=== PATIENT | male | born 1970 | race Caucasian/White ===

== ENCOUNTER 2019-12-11 06:17 | Outpatient (CLI) | payer OTHER, SELFPAY ==
[2019-12-11 16:20] LABS: SARS-CoV-2 RNA PCR Negative
== END 2019-12-11 06:18 | disposition home or self-care (01) ==
LOC: ANHCOVIDDT 06:18
PROVIDERS: PCP Internal Medicine; Visit Provider Surgery
DX: Z01.818 Encounter for other preprocedural examination (principal); Z11.59 Encounter for screening for other viral diseases
CPT/HCPCS: 87635; C9803; U0003

== ENCOUNTER 2019-12-11 08:26 | Outpatient (CLI) | payer OTHER, SELFPAY ==
--- NOTE | 2019-12-11 08:49 | ECG_ITS ---
Measurements Intervals [place] Rate: 62 P: 38 MA: 180 QRS: 18 QRSD: 94 T: 40 QT: 413 QTc: 420 Interpretive Statements SINUS RHYTHM BASELINE ARTIFACT- I, II, III, AVR, AVL,A VF NORMAL ECG Electronically Signed On 12-11-2019 9:26:10 CDT by Todd Coello D.O.
== END 2019-12-11 08:27 | disposition home or self-care (01) ==
PROVIDERS: PCP Internal Medicine; Visit Provider Anesthesiology
DX: Z01.810 Encounter for preprocedural cardiovascular examination (principal); I10 Essential (primary) hypertension
CPT/HCPCS: 93005

== ENCOUNTER 2019-12-14 00:07 | Day surgery (SDC) | payer OTHER, SELFPAY ==
[2019-12-11 07:15] VITALS: BMI 38.2
[2019-12-14] VITALS (9 sets, daily range): BP systolic 124–179; BP diastolic 79–104; PULSE 49–115; RESP 14–20; TEMP 36.4–37.5; O2SAT 92–99
[2019-12-14] MEDS: LACTATED RINGERS 1,000 ML 30 ML IV CONT ×2 (12:02→15:58)
[2019-12-14 12:19] LABS: Blood Urea Nitrogen 13 mg/dL (9-20); Calcium 8.6 mg/dL (8.4-10.2); Carbon Dioxide 22 mmol/L (22-30); Chloride 108 mmol/L (98-107); Estimated CRCL calculation 141 ml/min; Estimated Glomerular Filt Rate > 60; Glucose 98 mg/dL (75-110); Potassium 4.2 mmol/L (3.4-5.0); Sodium 137 mmol/L (137-145)
--- NOTE | 2019-12-14 12:36 | WPDANESEPPF ---
Anes - Initial Pre Proc Eval Procedure: Operation Date: 12/14/19 13:30 Proposed Procedures p Excision Lipomas Right Posterior Neck, Excision Lipomas Left Posterior Shoulder - Arsenio Julio MD Date/Time: 12/14/19 12:36 Surgeon: Arsenio Julio MD Pre Op Diagnosis: Lipomas Neck And Shoulder Patient Data Age: 49 Gender: M Height: 6 ft 1 in Weight: 133.6 kg Last Vital Signs Temp 37.5 C 12/14/19 12:18 Pulse 49 L 12/14/19 12:18 Resp 16 12/14/19 12:18 BP 137/90 12/14/19 12:18 Pulse Ox 99 12/14/19 12:18 Allergies Allergy/AdvReac Type Severity Reaction Status Date / Time No Known Allergies Allergy Mild Verified 12/14/19 11:42 Home Medications Medication Instructions Recorded Confirmed Type carvedilol 25 mg tablet 25 mg PO Q12H #180 tablet 08/10/19 12/14/19 Rx cetirizine 10 mg tablet 10 mg PO DAILY 10/13/19 12/14/19 History Vitamin B-12 1 tablet PO DAILY 12/11/19 12/14/19 History Laboratory Tests 12/14/19 12:00 Sodium 137 mmol/L mmol/L (137-145) Potassium 4.2 mmol/L mmol/L (3.4-5.0) Chloride 108 mmol/L H mmol/L (98-107) Carbon Dioxide 22 mmol/L mmol/L (22-30) BUN 13 mg/dL mg/dL (9-20) Creatinine 0.80 mg/dL mg/dL (0.7-1.3) Estim Creat Clear Calc 141 ml/min ml/min Estimated GFR > 60 (59 - ) Glucose 98 mg/dL mg/dL (75-110) Calcium 8.6 mg/dL mg/dL (8.4-10.2) Patient hx anesthesia problems: none Family hx anesthesia problems: none PMFSH Past Medical History Medical History Essential (primary) hypertension History of kidney stones Surgical History Surgical History History of back surgery Hx of tonsillectomy Family History Family History Mother Family history of malignant neoplasm of cervix Father High cholesterol Grandparent Cancer Cerebrovascular accident Other Family history of cardiovascular disease Hypertension Social History Social History Smoking status: Never smoker Second hand tobacco smoke exposure: No Alcohol intake: never Substance use: never Gender identity (if verbalized by the patient): Male Anes - Eval Final PreProcedure Day of Procedure 12/14/19 12:36 Patient weight: morbidly obese Heart: bradycardia Lungs: clear to auscultation Airway: Mallampati scale class II Neurological: alert and oriented Last oral intake: >/= 8 hours ASA classification: III Emergent: no Anesthetic plan: proceed Anesthesia type and monitoring: general LMA and standard monitoring Informed Consent: The patient's anesthetic plan and its attendant risks and benefits were discussed with the patient/family/POA. Questions were solicited and answers provided to the satisfaction of the patient/family/POA.
--- NOTE | 2019-12-14 13:23 | WPDHPUPDATE1 ---
History and Physical Update Update Date/Time: 12/14/19 13:23 History and Physical has been reviewed, including an updated exam of the patient. There are NO changes in the patient's condition. Risks, benefits, and alternatives have been discussed and questions answered. Patient agrees to proceed with procedure.
[2019-12-14] MEDS: ceFAZolin SODIUM 1 GM VIAL 3 GM IV PUSH (14:32)
[2019-12-14] MEDS: LIDO 2%/EPINEPHRINE 1:100,000 20 ML VIAL INFILTRATE (15:29)
--- NOTE | 2019-12-14 16:01 | P.OP_ITS ---
Procedure Note - Detailed Date of procedure: 12/14/19 Pre-op diagnosis: Lipomas Neck And Shoulder Post-op diagnosis: same Procedure performed: Excision of subcutaneous masses (suspected lipomas). Description of procedure: The patient was placed in the left lateral decubitus position on a beanbag and carefully secured. After a surgical time out confirming patient and procedure the patient was prepped and draped in the usual sterile fashion. Local anesthetic was administered subcutaneously. The lesion measured 5.0 x 5.5 cm. A direct incision was made over the mass and I cut directly down to the capsule of the lipoma.. I dissected down to the deep subcutaneous tissues and then completely excised the lesion. Should be mentioned that while we were doing this the patient had a coughing spell while in her G IV S. we had to stop the benitez rgery on cover in turn him on his back and intubated. Once this was accomplished returned back into the same position Betadine was used to reprep and drape the area. I then finished excision of the lesion. Inferior and superior flaps were raised with Bovie cautery. Bleeding was controlled with electrocautery. The underside of the lipoma was densely adherent to the underlying fascia and musculature. It had to be dissected off of these with Bovie cautery. Minimal bleeding occurred and was easily controlled with the cautery. The wound was closed in two layers. An un-dyed 3-0 vicryl deep dermal and then a 4-0 undyed Vicryl running subcuticular closure was completed. Surgical glue applied as dressing. Following this we carefully rolled the patient back onto another cart with a roller remover under in. We completely turned him onto the opposite side on the OR table so that he was laying on his right side and we could see the left posterior shoulder region where the other lipoma was. This was prepped with chlorhexidine completely draped off sterilely and then the 2nd lesion excised. Direct incision was made over the 4 x 5 cm lump on the skin. This was also transverse. I carefully dissected down to the capsule of the lipoma and dissected inferior and superior flaps and then rotated the lipoma off the underlying fascia by carefully placing Allis on it and rotating it from lateral to medial. It was completely excised. There was some bleeding from the underlying fascia and 2 3-0 Vicryl [id number] sutures were used to stop this bleeding. Bovie cautery was used for the rest. Once hemostasis was achieved, the incision was closed in 2 layers using 3 0 Vicryl interrupted sutures followed, by several 4 - 0 un dyed Monocryl sutures and then a running subcuticular closure of the 4 -0 Monocryl. Surgical glue was also applied to this incision. Patient tolerated this well. Implants: none Anesthesia: local Surgeon: Arsenio Julio MD Esthetician Spa: Juanjose SCHMID, and Susan SCHMID OR 1st assists Estimated blood loss (mL): 12 Drains: No Packing: No Pathology: yes (Both lipomas sent for pathologic evaluation) Complications: No immediate complications Condition: stable Disposition: PACU Findings: Subcutaneous masses which appeared to be fat consistent with lipomas.
[2019-12-14] MEDS: ONDANSETRON INJ 4 MG/2 ML VIAL IV PUSH (16:58)
== END 2019-12-14 18:02 | disposition home or self-care (01) ==
PROVIDERS: PCP Internal Medicine; Visit Provider Surgery
PROC: (CPT 21552; principal; 2019-12-14 13:30)
DX: D17.0 Benign lipomatous neoplasm of skin and subcutaneous tissue of head, face and neck (principal); D17.22 Benign lipomatous neoplasm of skin and subcutaneous tissue of left arm; I10 Essential (primary) hypertension
CPT/HCPCS: 21552; 24071; 36415; 80048; 88304; J0690; J1100; J2001; J2250; J2405; J2704; J3010; J7120

== ENCOUNTER 2021-03-08 12:16 | Outpatient (CLI) | payer OTHER, SELFPAY ==
--- NOTE | 2021-03-08 12:24 | ECG_ITS ---
Measurements Intervals [place] Rate: 61 P: 51 NV: 172 QRS: 32 QRSD: 96 T: 55 QT: 420 QTc: 423 Interpretive Statements SINUS RHYTHM NORMAL ECG Electronically Signed On 03-08-2021 12:42:43 CDT by Todd Coello D.O.
== END 2021-03-08 12:17 | disposition home or self-care (01) ==
PROVIDERS: PCP Internal Medicine; Visit Provider Internal Medicine
DX: R07.89 Other chest pain (principal)
CPT/HCPCS: 93005

== ENCOUNTER 2021-04-18 08:59 | Outpatient (CLI) | payer OTHER, SELFPAY ==
--- NOTE | 2021-04-18 09:04 | EST_ITS ---
Patient Info Name: Ramu Guan Age: 50 years : 1970 Gender: Male Ht: 73 in Wt: 295 lbs BSA: 2.68 m2 HR: 65 bpm BP: 151 / 95 mmHg Exam Date: 04/18/2021 9:29 AM Exam Location: [facility] Patient Status: Outpatient Admit Date: 04/18/2021 Staff Ordering Physician: Todd Lopez DO Timekeeper Supervisor: MARY Attending Provider: TODD LOPEZ DO Referring Physician: Mode APARICIO; Exercise Technologist: Adrianna Bates RDCS Exercise Physician: Todd Lopez DO Exam Type: CA stress echo Study Info Indications R07.9 - Chest pain, unspecified Treadmill exercise stress echocardiogram is performed. Summary 1. 1. Negative Frank exercise stress test for ischemic ST changes by ECG criteria. 2. 2. Reduced functional capacity, achieving 7 METs of workload. 3. 3. Baseline hypertension with hypertensive response to exercise. 4. 4. Appropriate HR response to exercise. 5. 5. Appropriate HR recovery at 1 minute post exercise. 6. 6. Negative stress echocardiogram for ischemia by wall motion analysis. 7. 7. Patient informed of the above results. Stress Echo Findings Left Ventricle Appropriate increase in LV endocardial thickening with systole. Appropriate augmentation of contractility with systole. No wall motion abnormality. Left Ventricle Normal LV systolic function, no wall motion abnormality. Protocol: Frank Stress ECG Details Stage: REST Duration (min): 0 min : 52 sec Speed (mph): 0.0 Grade (%): 0 HR (bpm): 65 SBP (mmHg): 151 DBP (mmHg): 95 METS: --- Stage: REST Duration (min): 7 min : 26 sec Speed (mph): 0.0 Grade (%): 0 HR (bpm): 76 SBP (mmHg): 151 DBP (mmHg): 95 METS: --- Stage: STAGE 1 Duration (min): 1 min : 0 sec Speed (mph): 1.7 Grade (%): 10 HR (bpm): 102 SBP (mmHg): 151 DBP (mmHg): 95 METS: --- Stage: STAGE 1 Duration (min): 2 min : 0 sec Speed (mph): 1.7 Grade (%): 10 HR (bpm): 117 SBP (mmHg): 151 DBP (mmHg): 95 METS: --- Stage: STAGE 1 Duration (min): 3 min : 0 sec Speed (mph): 1.7 Grade (%): 10 HR (bpm): 126 SBP (mmHg): 191 DBP (mmHg): 89 METS: --- Stage: STAGE 2 Duration (min): 1 min : 0 sec Speed (mph): 2.5 Grade (%): 12 HR (bpm): 135 SBP (mmHg): 191 DBP (mmHg): 89 METS: --- Stage: STAGE 2 Duration (min): 2 min : 0 sec Speed (mph): 2.5 Grade (%): 12 HR (bpm): 147 SBP (mmHg): 177 DBP (mmHg): 96 METS: --- Stage: STAGE 2 Duration (min): 3 min : 0 sec Speed (mph): 2.5 Grade (%): 12 HR (bpm): 155 SBP (mmHg): 177 DBP (mmHg): 96 METS: --- Stage: STAGE 3 Duration (min): 0 min : 1 sec Speed (mph): 0.0 Grade (%): 0 HR (bpm): 155 SBP (mmHg): 177 DBP (mmHg): 96 METS: --- Stage: RECOVERY Duration (min): 0 min : 59 sec Speed (mph): 0.0 Grade (%): 0 HR (bpm): 131 SBP (mmHg): 214 DBP (mmHg): 101 METS: --- Stage:
== END 2021-04-18 09:00 | disposition home or self-care (01) ==
LOC: ANHCARD 09:01
PROVIDERS: PCP Internal Medicine; Visit Provider Internal Medicine Cardiovascular Disease
DX: R07.89 Other chest pain (principal)
CPT/HCPCS: 93351

== ENCOUNTER 2021-12-28 00:54 | Day surgery (SDC) | payer OTHER, SELFPAY ==
[2021-12-14 08:20] VITALS: BMI 38.9
[2021-12-28 06:54] VITALS: BP 134/91; PULSE 81; RESP 20; TEMP 36.2; O2SAT 96
[2021-12-28] MEDS: LACTATED RINGERS 1,000 ML 150 ML IV CONT (07:01)
--- NOTE | 2021-12-28 07:34 | WPDANESEPPF ---
Anes - Initial Pre Proc Eval Procedure: Operation Date: 12/28/21 08:00 Proposed Procedures p Screening Colonoscopy - Ramu Velasquez MD Date/Time: 12/28/21 07:34 Surgeon: Ramu Velasquez MD Pre Op Diagnosis: neoplasm screening Patient Data Age: 51 Gender: M Height: 1.85 m Weight: 135.4 kg Last Vital Signs Temp 97.2 F L 12/28/21 06:54 Pulse 81 12/28/21 06:54 Resp 20 12/28/21 06:54 BP 134/91 H 12/28/21 06:54 Pulse Ox 96 12/28/21 06:54 O2 Del Method Room Air 12/28/21 06:54 Allergies Allergy/AdvReac Type Severity Reaction Status Date / Time No Known Allergies Allergy Mild Verified 12/28/21 06:52 Home Medications Medication Instructions Recorded Confirmed Type cetirizine 10 mg tablet (Allergy 10 mg PO DAILY 10/13/19 12/14/21 History Relief (cetirizine)) Vitamin B-12 1 tablet PO DAILY 12/11/19 12/14/21 History magnesium 30 mg tablet 30 mg PO DAILY 10/26/20 12/14/21 History omega-3 fatty acids 1,000 mg 1,000 mg PO DAILY 10/26/20 12/14/21 History capsule (Fish Oil Concentrate) carvedilol 25 mg tablet 25 mg PO Q12H #180 tabs 05/14/21 12/14/21 Rx valsartan 160 mg tablet 160 mg PO DAILY #90 tabs 11/06/21 12/14/21 Rx Patient hx anesthesia problems: none Family hx anesthesia problems: none Results Review: All pre-operative results and documents have been reviewed as part of the pre-operative evaluation. [facility] Past Medical History Medical History Essential (primary) hypertension History of kidney stones Surgical History Surgical History History of back surgery Hx of tonsillectomy Family History Family History Mother Family history of malignant neoplasm of cervix Father High cholesterol Grandparent Cancer Cerebrovascular accident Other Family history of cardiovascular disease Hypertension Social History Social History Smoking status: Never smoker Second hand tobacco smoke exposure: No Alcohol intake: never Substance use: never Living arrangements: with family Gender identity (if verbalized by the patient): Male Spiritual care concerns: No Anes - Eval Final PreProcedure Day of Procedure 12/28/21 07:34 Patient weight: morbidly obese Heart: regular rate and rhythm Lungs: clear to auscultation Neurological: alert and oriented Last oral intake: >/= 8 hours ASA classification: III Emergent: no Anesthetic plan: proceed Anesthesia type and monitoring: general GIVS and standard monitoring Results Review: All pre-operative results and documents have been reviewed as part of the pre-operative evaluation. Informed Consent: The patient's anesthetic plan and its attendant risks and benefits were discussed with the patient/family/POA. Questions were solicited and answers provided to the satisfaction of the patient/family/POA.
--- NOTE | 2021-12-28 07:55 | WPDGICN ---
Assessment and Plan Assessment and plan (1) Encounter for screening colonoscopy: Code(s): Z12.11 - Encounter for screening for malignant neoplasm of colon Status: Acute Assessment and Plan: Patient presents today for screening colonoscopy. Appears to be at average risk for colon polyps. Further recommendations will be given after endoscopy. GI Consult Note Consult date/time: 12/28/21 07:55 Reason for consult: Neoplasia screening. HPI: Ramu Guan is a 51 year old male Presents for screening colonoscopy. Patient's current weight appetite and bowel movements are normal. Patient denies abdominal pain. Patient has had no bleeding. Family history is significant his grandfather had colon cancer patient presents today for neoplasia screening. Review of Systems Review of Systems: Review of systems noncontributory. PMFSH Past Medical History Medical History (Updated 12/28/21 @ 07:57 by Ramu Velasquez MD) Essential (primary) hypertension History of kidney stones Surgical History Surgical History History of back surgery Hx of tonsillectomy Family History Family History Mother Family history of malignant neoplasm of cervix Father High cholesterol Grandparent Cancer Cerebrovascular accident Other Family history of cardiovascular disease Hypertension Social History Social History Smoking status: Never smoker Second hand tobacco smoke exposure: No Alcohol intake: never Substance use: never Living arrangements: with family Gender identity (if verbalized by the patient): Male Spiritual care concerns: No Meds Home Medications and Allergies Home Medications Medication Instructions Recorded Confirmed Type cetirizine 10 mg tablet (Allergy 10 mg PO DAILY 10/13/19 12/14/21 History Relief (cetirizine)) Vitamin B-12 1 tablet PO DAILY 12/11/19 12/14/21 History magnesium 30 mg tablet 30 mg PO DAILY 10/26/20 12/14/21 History omega-3 fatty acids 1,000 mg 1,000 mg PO DAILY 10/26/20 12/14/21 History capsule (Fish Oil Concentrate) carvedilol 25 mg tablet 25 mg PO Q12H #180 tabs 05/14/21 12/14/21 Rx valsartan 160 mg tablet 160 mg PO DAILY #90 tabs 11/06/21 12/14/21 Rx Allergies Allergy/AdvReac Type Severity Reaction Status Date / Time No Known Allergies Allergy Mild Verified 12/28/21 06:52 Vital Signs Vital Signs - 24 hr 12/28/21 06:54 Temperature 97.2 F L Pulse Rate 81 Respiratory Rate 20 Blood Pressure 134/91 H Pulse Oximetry 96 Oxygen Delivery Room Air Exam Narrative: Physical exam reveals patient to be alert. Vital signs stable. HEENT exam is unremarkable. Patient is anicteric. Lungs are clear to auscultation and percussion. Heart is without murmur or extra sounds. Abdominal exam bowel sounds are present soft nontender with no organomegaly. Digital external rectal exam is normal.
[2021-12-28 08:24] VITALS: BP 128/83; PULSE 67; RESP 26; O2SAT 95
[2021-12-28 08:34] VITALS: BP 126/90; PULSE 59; RESP 23; O2SAT 96
[2021-12-28 08:44] VITALS: BP 130/96; PULSE 56; RESP 23; O2SAT 95
== END 2021-12-28 08:55 | disposition home or self-care (01) ==
PROVIDERS: PCP Internal Medicine; Visit Provider Internal Medicine Gastroenterology
PROC: 0DJD8ZZ Inspection of Lower Intestinal Tract, Via Natural or Artificial Opening Endoscopic (ICD-10-PCS; CPT 45378; principal; 2021-12-28 08:00)
DX: Z12.11 Encounter for screening for malignant neoplasm of colon (principal); K63.5 Polyp of colon; K64.8 Other hemorrhoids; K57.30 Diverticulosis of large intestine without perforation or abscess without bleeding; I10 Essential (primary) hypertension; Z87.442 Personal history of urinary calculi
CPT/HCPCS: 45380; 88305; J2704; J7120